=== PATIENT | male | born 1950 | race Caucasian/White ===

== ENCOUNTER 2018-02-01 08:44 | Emergency (ER) | payer MEDICARE, OTHER ==
[~2018-02-01] VITALS: Ht 180.3 cm; Wt 144.7 kg
[~2018-02-01 08:44] MED LIST: ALLO300 PO; ALLOPURINOL 300 MG PO; AMIO200 PO; AMIODARONE 200 MG PO; AMLO10 PO; AMOCLA875 PO; ASPI81CH PO; ASPIRIN 81 MG PO; ATECHL; ATEN100 PO; ATEN50 PO; Amaryl2 MG PO; Atenolol-Chlor1 EACH PO; Atenolol50 MG PO; CHLO25B PO; CLOP75 PO; CLOPIDOGREL 75 MG PO; CODACE30 PO; Coumadin1 MG PO; Coumadin5 MG PO; Cymbalta60 MG PO; DILTIAZEM 360 MG; DOXA4 PO; DULO30 PO; DULO60 PO; ESOM20 PO; FURO40 PO; Fortamet500 MG PO; GLIM2 PO; GLYC2 PO; HYDR1TAB94 PO; INSDET100 SC; INSLI100I; INSLI100I SC; Isosorbide Mono30 MG PO; Januvia50 MG; LEVEMIR FL100 UNIT/1 SC; LEVO750 PO; LOSA50 PO; METF500 PO; METF500C PO; Metformin HCl500 MG PO; Micardis80 MG; NITR.4SL; NITR.4SL MM; OXYACE5T PO; PANT20 PO; PANT40 PO; POTCHL10ER PO; PROM25 PO; RANO500T PO; SIMV10 PO; SITA100T2 PO; Simvastatin20 MG PO; TAMS.4ER PO; TAZTIA XT PO; TAZTIA XT360 MG PO; TELM80 PO; TIAZAC PO; TIZANIDINE HCL2 MG PO; TIZANIDINE HCL4 MG PO; WARF1 PO; WARF10 PO; WARF4 PO; WARF7.5 PO; [UNRECOGNIZED DRUG - CODE] PO; [UNRECOGNIZED DRUG - REMARK]
[2018-02-01 09:44] LABS: Source, Urine Clean Catch
[2018-02-01 09:51] LABS: Bilirubin, Urine Neg (Neg); Blood, Urine 5+ (Neg); Glucose Qualitative, Urine Neg (Neg); Ketones, Urine Neg (Neg); Leukocyte Esterase, Urine Neg (Neg); Nitrite, Urine Neg (Neg); Protein, Urine 4+ (Neg); Specific Gravity, Urine 1.015 (1.003-1.022); Urobilinogen, Urine NORM (Normal); pH, Urine 6.5 (5.0-8.0)
[2018-02-01 09:59] LABS: Color, Urine Red (P-Yellow)
[2018-02-01 10:00] LABS: Appearance, Urine Bloody (Clear)
[2018-02-01 10:04] LABS: Bacteria Mod /hpf; Red Blood Cells, Urine TNTC /hpf (0-2); Squamous Epithelial Cells Not Seen /hpf (Few)
[2018-02-01 11:00] LABS: International Normalized Ratio 1.88; Prothrombin Time Results 19.9 Sec (9.7-11.5)
[2018-02-01] MEDS ORDERED: Bactrim Ds Tab1 EACH PO (11:14)
== END 2018-02-01 11:24 | disposition home or self-care (01) ==
LOC: ER 08:44
PROVIDERS: Internal Medicine
DX: R31.9 Hematuria, unspecified (principal); Z88.0 Allergy status to penicillin; Z79.899 Other long term (current) drug therapy; Z79.4 Long term (current) use of insulin; Z79.84 Long term (current) use of oral hypoglycemic drugs; Z79.01 Long term (current) use of anticoagulants; Z79.82 Long term (current) use of aspirin; I48.91 Unspecified atrial fibrillation; E11.9 Type 2 diabetes mellitus without complications; I10 Essential (primary) hypertension; Z87.891 Personal history of nicotine dependence
CPT/HCPCS: 81001; 85610; 87077; 87086; 87186; 99283

== ENCOUNTER 2018-06-11 11:04 | Day surgery (SDC) | payer MEDICARE, OTHER ==
[~2018-06-11] VITALS: Ht 177.8 cm; Wt 142.7 kg
[~2018-06-11 11:04] MED LIST changes: +Bactrim Ds Tab1 EACH PO
== END 2018-06-11 12:45 | disposition home or self-care (01) ==
LOC: ORSCSDS 11:04
PROVIDERS: Student in an Organized Health Care Education/Training Program
PROC: 0DB68ZX Excision of Stomach, Via Natural or Artificial Opening Endoscopic, Diagnostic (ICD-10-PCS; principal; 2018-06-11 12:30)
DX: Z01.818 Encounter for other preprocedural examination (principal); K29.70 Gastritis, unspecified, without bleeding; E66.01 Morbid (severe) obesity due to excess calories; Z68.41 Body mass index [BMI] 40.0-44.9, adult; E11.9 Type 2 diabetes mellitus without complications; G47.33 Obstructive sleep apnea (adult) (pediatric); I25.10 Atherosclerotic heart disease of native coronary artery without angina pectoris; I48.91 Unspecified atrial fibrillation; I10 Essential (primary) hypertension; M79.7 Fibromyalgia; Z79.01 Long term (current) use of anticoagulants; Z79.82 Long term (current) use of aspirin; Z79.4 Long term (current) use of insulin; Z79.899 Other long term (current) drug therapy; Z87.891 Personal history of nicotine dependence
CPT/HCPCS: 82947; 88305; 88342; 93005; 93010

== ENCOUNTER 2019-01-25 07:35 | Day surgery (SDC) | payer MEDICARE, OTHER ==
[~2019-01-25] VITALS: Ht 177.8 cm; Wt 144.2 kg
[~2019-01-25 07:35] MED LIST changes: +RELION NOV100 UNIT/1 SC; +WARF2 PO
--- NOTE | 2019-01-25 13:09 | NUR ---
ASSUMED CARE AT 1220 PATIENT IS PCU STATUS FROM OUTPATIENT ANGIO. RECEIVED [address]AND IN PL[address] RIGHT RADIAL INFLATED WITH 10CC AIR. PATIENT A&O. AT BEDSIDE.
--- NOTE | 2019-01-25 20:00 | NUR ---
ASSUMED CARE- ASSUMED CARE OF PATIENT AT APPROXIMATELY 1930. PT IS AOX4. VSS. R RADIAL SITE RECOVERED AND TR BAND HAS BEEN REMOVED. CLEAR TEGADERM DRESSING IN PLACE WITH NO NOTED DRAINAGE, BRUISING, OR HEMATOMA. PT DENIES PAIN TO SITE OR R ARM. PT REPORTING MILD CHEST AND BACK "ACHING" THAT HAS "IMPROVED FROM BEFORE" THE PROCEDURE AND STENT PLACEMENT. WILL CONTINUE TO MONITOR, BED IN LOW POSITION, CALL LIGHT IN REACH.
--- NOTE | 2019-01-25 20:16 | NUR ---
REPORT GIVEN TO EVE CORTEZ
[2019-01-26 03:42] LABS: BASOPHILS ABSOLUTE AUTO 0.06 K/mm3 (0.00-0.23); BASOPHILS PERCENT AUTO 1 % (0-2); EOSINOPHILS ABSOLUTE AUTO 0.54 K/mm3 (0.00-0.68); EOSINOPHILS PERCENT AUTO 7 % (0-6); Hematocrit 40.7 % (37.0-53.0); Hemoglobin 13.6 g/dL (13.5-17.5); IMMATURE GRAN ABSOLUTE AUTO 0.03 K/mm3 (0.00-0.10); IMMATURE GRAN PERCENT AUTO 0 % (0-1); LYMPHOCYTES ABSOLUTE AUTO 2.05 K/mm3 (0.84-5.20); LYMPHOCYTES PERCENT AUTO 26 % (21-46); MONOCYTES ABSOLUTE AUTO 0.63 K/mm3 (0.16-1.47); MONOCYTES PERCENT AUTO 8 % (4-13); Mean Corpuscular HGB 31.6 pg (26.0-34.0); Mean Corpuscular HGB Conc 33.4 g/dL (31.5-36.5); Mean Corpuscular Volume 94 fL (80-100); Mean Platelet Volume 10.1 fL (9.1-12.4); NEUTROPHILS ABSOLUTE AUTO 4.67 K/mm3 (1.96-9.15); NEUTROPHILS PERCENT AUTO 58 % (41-73); Platelet Count 230 K/mm3 (150-400); RDW Coefficient Variation 14.1 % (11.7-14.2); RDW Standard Deviation 48.4 fL (35.1-46.3); Red Blood Cell Count 4.31 M/mm3 (4.30-5.90); White Blood Cell Count 7.98 K/mm3 (4.00-11.30)
[2019-01-26 03:55] LABS: International Normalized Ratio 1.09; Prothrombin Time Results 11.5 Sec (9.7-11.5)
[2019-01-26 04:01] LABS: Anion Gap 4 mmol/L (6-16); Blood Urea Nitrogen 15 mg/dL (8-24); Bun/Creatinine Ratio 15.9 (12.0-20.0); CO2, Blood 29 mmol/L (21-32); Chloride, Blood 104 mmol/L (98-108); Creatinine, Blood 0.94 mg/dL (0.60-1.20); Glomerular Filtration Rate >60 (60-); Glucose, Blood 111 mg/dL (70-99); Potassium, Blood 3.8 mmol/L (3.5-5.5); Sodium, Blood 137 mmol/L (136-145)
--- NOTE | 2019-01-26 06:10 | NUR ---
SHIFT SUMMARY- PT HAS REMAINED AOX4 THROUGHOUT SHIFT. VSS. PLEASANT AND COOPERATIVE WITH CARE. PT HAS REPORTED NO INCREASE IN CHEST/BACK DISCOMFORT OR "ACHING", REPORTS THAT IT IS STILL PRESENT, BUT MILD. CARDIAC RHYTHM HAS REMAINED PACED THROUGHOUT THE NIGHT AND PATIENT HAS SLEPT WELL WITH HOME CPAP IN PLACE. R RADIAL SITE REMAINS WNL AND ARM BOARD REMAINS IN PLACE. PT PROVIDED WITH EDUCATION ON POST PROCEDURE WRIST RESTRICTIONS. NO OTHER CHANGES FROM INITIAL ASSESSMENT. WILL CONTINUE TO MONITOR AND REPORT TO ONCOMING SHIFT RN. BED IN LOW POSITION, CALL LIGHT IN REACH.
--- NOTE | 2019-01-26 07:37 | NUR ---
CARE ASSUMED CARE AND REPORT ASSUMED FROM DIEGO PRADO. PT SITTING UP IN BED WATCHING TV; INDEPENDENT IN ROOM. DENIES CHEST PAIN AND DENIES ANY PAIN THIS AM. A/O X3, CALM AND COOPERATIVE. VSS. PACED RHYTHM, HR 55-60. BP STABLE. AFEBRILE. R ARM SECURED IN ARMBOARD. PUNCTURE SITE IN RIGHT WRIST IS CLEAN AND DRY WITH DRESSING INTACT AND RADIAL PULSE PALPABLE. WILL CONTINUE TO MONITOR.
--- NOTE | 2019-01-26 08:40 | NUR ---
AMBULATION PT AMBULATED AROUND UNIT WITH STANDBY ASSIST. ABLE TO CARRY ON CONVERSATION ENTIRE TIME. DENIES CHEST PAIN AND SOB. VSS. NOW SITTING UP IN CHAIR.
[2019-01-26] MEDS ORDERED: CLOP75 PO (14:09)
== END 2019-01-26 14:34 | disposition home or self-care (01) ==
LOC: ECHO 07:35 → MHTC 07:35 → ECHO 08:00 → EDSTATUS 08:00 → ICUW 11:43 → ECHO 12:52 → MHTC 01-26 14:34 → ICUW 01-26 14:34
PROVIDERS: Internal Medicine Cardiovascular Disease
DX: I25.119 Atherosclerotic heart disease of native coronary artery with unspecified angina pectoris (principal); I25.5 Ischemic cardiomyopathy; I48.0 Paroxysmal atrial fibrillation; I25.2 Old myocardial infarction; I49.5 Sick sinus syndrome; I35.0 Nonrheumatic aortic (valve) stenosis; M79.7 Fibromyalgia; G47.33 Obstructive sleep apnea (adult) (pediatric); E11.9 Type 2 diabetes mellitus without complications; E03.9 Hypothyroidism, unspecified; E66.9 Obesity, unspecified; I10 Essential (primary) hypertension; M10.9 Gout, unspecified; Z79.84 Long term (current) use of oral hypoglycemic drugs; Z88.0 Allergy status to penicillin; Z87.891 Personal history of nicotine dependence; Z95.0 Presence of cardiac pacemaker; Z95.5 Presence of coronary angioplasty implant and graft; Z68.42 Body mass index [BMI] 45.0-49.9, adult
CPT/HCPCS: 36415; 37252; 37253; 80048; 83735; 85025; 85347; 85610; 92978; 92979; 93306; 93454; 99152; 99153; C1725; C1753; C1769; C1874; C1887; C1894; C9600; G0378; J1644; J2250; J3010; J7030; Q9967

== ENCOUNTER 2020-05-16 05:55 | Day surgery (SDC) | payer MEDICARE, OTHER ==
[~2020-05-16] VITALS: Ht 177.8 cm; Wt 144.0 kg
[~2020-05-16 05:55] MED LIST changes: +ATOR40TA PO; +NITR.4SL SL
[2020-05-16] MEDS ORDERED: WARF10 PO (06:21)
--- NOTE | 2020-05-16 08:10 | NUR ---
PT TO RECOVERY ROOM POST PROCEDURE. PT AWAKE AND ORIENTED, COOPERATIVE, DENIES CHEST PAINPOST PROCEDURE. MONITOR PACED 50, B/P 129/83, AFEBRILE, SPO2 95% RA. R RADIAL SITE NO SWELLING/HEMATOMA, TR BAND IN PLACE. PT TAKING CRACKERS AND CHEESE WITHOUT ISSUE.
--- NOTE | 2020-05-16 09:35 | NUR ---
PT TOOK BREAKFAST WITHOUT PROBLEM.
--- NOTE | 2020-05-16 09:56 | NUR ---
2 CC AIR REMOVED FROM TR BAND. NO BLEEDING AT SITE.
--- NOTE | 2020-05-16 11:00 | NUR ---
PT AMB IN RECOVERY ROOM AND [place] WITHOUT ISSUE, SITE UNCHANGED. PT DRESSING SELF INDEPENDENTLY.
--- NOTE | 2020-05-16 11:15 | NUR ---
PT DRESSED SELF WITHOUT ISSUE, SITE UNCHANGED. TR BAND REMOVED, WRIST IMMOBILIZER AND CLOTH DOT PLACED; IV REMOVED-CANNULA INTACT.
--- NOTE | 2020-05-16 11:24 | NUR ---
PT RECIEVED DISCHARGE INSTRUCTIONS, MED LIST AND AFTER CARE INSTRUCTIONS; VERBALIZED GOOD UNDERSTANDING. PT LEFT FACILITY VIA W/C, CONDITION STABLE.
== END 2020-05-16 11:24 | disposition home or self-care (01) ==
LOC: MHTC 05:55
PROC: B201YZZ Plain Radiography of Multiple Coronary Arteries using Other Contrast (ICD-10-PCS; principal; 2020-05-16)
PROC: 4A023N7 Measurement of Cardiac Sampling and Pressure, Left Heart, Percutaneous Approach (ICD-10-PCS; principal; 2020-05-16)
DX: I35.0 Nonrheumatic aortic (valve) stenosis (principal); I25.10 Atherosclerotic heart disease of native coronary artery without angina pectoris; Z95.5 Presence of coronary angioplasty implant and graft; Z88.0 Allergy status to penicillin
CPT/HCPCS: 76937; 82947; 93454; 99152; 99153; C1769; C1894; J1644; J2250; J3010; J7030; J7040; Q9967

== ENCOUNTER → 2020-12-25 | Outpatient (CLI) | payer MEDICARE, OTHER | LOC: LAB SHORT 08:59 → LAB 08:59 | DX: R23.4 Changes in skin texture (principal); B35.1 Tinea unguium; L60.2 Onychogryphosis | CPT/HCPCS: 88304; 88312 ==

== ENCOUNTER 2021-06-01 06:54 | Day surgery (SDC) | payer MEDICARE, OTHER ==
[2021-06-01] MEDS ORDERED: POTA10T PO (07:22)
[2021-06-01] MEDS ORDERED: RANO500T PO (07:23)
[2021-06-01] MEDS ORDERED: TRAZ50 PO (07:25)
--- NOTE | 2021-06-01 07:28 | NUR ---
DR. DIAZ TO REVIEW PT'S CHART AND SPEAK WITH PT. DR. DIAZ HAS CANCELED THE HEART CATH FOR TODAY.
== END 2021-06-01 23:41 | disposition home or self-care (01) ==
LOC: MHTC 06:54
DX: I25.118 Atherosclerotic heart disease of native coronary artery with other forms of angina pectoris (principal); Z53.9 Procedure and treatment not carried out, unspecified reason
CPT/HCPCS: J1644; J7030; J7050

== ENCOUNTER → 2023-02-24 | Outpatient (CLI) | payer MEDICARE, OTHER ==
[~2023-02-24] MED LIST changes: +POTA10T PO; +TRAZ50 PO
[2023-02-24 09:41] LABS: Bun/Creatinine Ratio 13.5 (12.0-20.0); Calcium, Blood 9.4 mg/dL (8.5-10.1); Creatinine, Blood 1.11 mg/dL (0.60-1.20); Potassium, Blood 4.4 mmol/L (3.5-5.5)
[2023-02-24 11:15] LABS: International Normalized Ratio 2.18; Prothrombin Time Results 21.9 Sec (9.7-11.5)
== END | disposition home or self-care (01) ==
LOC: LAB 09:31 → LAB SHORT 09:31
PROVIDERS: Family Medicine
DX: I48.91 Unspecified atrial fibrillation (principal); N18.30 Chronic kidney disease, stage 3 unspecified
CPT/HCPCS: 80048; 85610

== ENCOUNTER 2023-10-14 04:00 | Emergency (ER) | payer MEDICARE, OTHER ==
[~2023-10-14] VITALS: Ht 177.8 cm; Wt 138.8 kg
[2023-10-14] MEDS ORDERED: HYDROCODONE-AC1 EA19 (04:22)
[2023-10-14 09:09] VITALS: BP 158/85
== END 2023-10-14 09:10 | disposition home or self-care (01) ==
LOC: ER 04:00
DX: M77.9 Enthesopathy, unspecified (principal); Z98.890 Other specified postprocedural states; I48.91 Unspecified atrial fibrillation; I25.10 Atherosclerotic heart disease of native coronary artery without angina pectoris; E11.9 Type 2 diabetes mellitus without complications; I10 Essential (primary) hypertension; G47.33 Obstructive sleep apnea (adult) (pediatric); Z79.02 Long term (current) use of antithrombotics/antiplatelets; Z79.01 Long term (current) use of anticoagulants; Z79.4 Long term (current) use of insulin; Z79.84 Long term (current) use of oral hypoglycemic drugs; Z79.899 Other long term (current) drug therapy; Z88.0 Allergy status to penicillin
CPT/HCPCS: 29125; 73110; 73201; 99284-25; J1885; L3917; Q9967

== ENCOUNTER 2023-11-01 10:40 | Emergency (ER) | payer MEDICARE, OTHER ==
[~2023-11-01] VITALS: Ht 188 cm; Wt 136.1 kg
[~2023-11-01 10:40] MED LIST changes: +HYDROCODONE-AC1 EA19
[2023-11-01 11:47] LABS: Influenza A, PCR NEGATIVE (NEGATIVE); Influenza B, PCR NEGATIVE (NEGATIVE); Resp Syncytial Virus, PCR NEGATIVE (NEGATIVE); SARS-Cov-2 (COVID-19) PCR, MMC NEGATIVE (NEGATIVE)
[2023-11-01] MEDS ORDERED: HYDR1TAB94 PO (14:37)
[2023-11-01 14:54] VITALS: BP 145/97
== END 2023-11-01 14:55 | disposition home or self-care (01) ==
LOC: ER 10:40
PROVIDERS: Student in an Organized Health Care Education/Training Program
DX: M19.90 Unspecified osteoarthritis, unspecified site (principal); Z11.52 Encounter for screening for COVID-19; Z87.891 Personal history of nicotine dependence; I48.91 Unspecified atrial fibrillation; I25.810 Atherosclerosis of coronary artery bypass graft(s) without angina pectoris; Z95.0 Presence of cardiac pacemaker; E11.9 Type 2 diabetes mellitus without complications; I10 Essential (primary) hypertension; G47.33 Obstructive sleep apnea (adult) (pediatric); M10.9 Gout, unspecified; Z79.01 Long term (current) use of anticoagulants; Z79.4 Long term (current) use of insulin; Z79.84 Long term (current) use of oral hypoglycemic drugs; Z79.02 Long term (current) use of antithrombotics/antiplatelets; Z79.899 Other long term (current) drug therapy; Z88.0 Allergy status to penicillin
CPT/HCPCS: 0241U; 96372; 99283-25; J1885

== ENCOUNTER 2023-11-05 00:27 | Emergency (ER) | payer MEDICARE, OTHER ==
[~2023-11-05] VITALS: Ht 172.7 cm; Wt 124.7 kg
[2023-11-05 01:03] VITALS: BP 162/97
[2023-11-05] MEDS ORDERED: DELTASONE20 MG PO (01:15)
== END 2023-11-05 01:51 | disposition home or self-care (01) ==
LOC: ER 00:27
DX: M19.90 Unspecified osteoarthritis, unspecified site (principal); I48.91 Unspecified atrial fibrillation; I25.10 Atherosclerotic heart disease of native coronary artery without angina pectoris; E11.9 Type 2 diabetes mellitus without complications; I10 Essential (primary) hypertension; Z79.899 Other long term (current) drug therapy; Z79.4 Long term (current) use of insulin; Z79.84 Long term (current) use of oral hypoglycemic drugs; Z79.01 Long term (current) use of anticoagulants; Z95.0 Presence of cardiac pacemaker; Z87.891 Personal history of nicotine dependence
CPT/HCPCS: 96372; 99282-25; J1885; J7512

== ENCOUNTER 2024-02-10 06:04 | Emergency (ER) | payer MEDICARE, OTHER ==
[~2024-02-10] VITALS: Ht 177.8 cm; Wt 143.8 kg
[~2024-02-10 06:04] MED LIST changes: +DELTASONE20 MG PO; +GABA100
[2024-02-10] MEDS ORDERED: TRAM50 PO (06:20)
[2024-02-10] MEDS ORDERED: Cyclobenzaprine5 MG PO (06:21)
[2024-02-10] MEDS ORDERED: [UNRECOGNIZED DRUG - OTHER] MC (06:21)
[2024-02-10] MEDS ORDERED: Ketorolac Tromethamine 30mg Vial IM ONE (06:35)
[2024-02-10 07:26] VITALS: BP 134/78
== END 2024-02-10 07:26 | disposition home or self-care (01) ==
LOC: ER 06:04
DX: R52 Pain, unspecified (principal); I25.10 Atherosclerotic heart disease of native coronary artery without angina pectoris; I48.91 Unspecified atrial fibrillation; E11.9 Type 2 diabetes mellitus without complications; I10 Essential (primary) hypertension; Z88.0 Allergy status to penicillin; Z79.899 Other long term (current) drug therapy; Z79.84 Long term (current) use of oral hypoglycemic drugs; Z79.01 Long term (current) use of anticoagulants; Z95.0 Presence of cardiac pacemaker
CPT/HCPCS: 96372; 99283-25; J1885

== ENCOUNTER 2024-02-15 11:10 | Emergency (ER) | payer MEDICARE, OTHER ==
[~2024-02-15] VITALS: Ht 177.8 cm; Wt 143.8 kg
[~2024-02-15 11:10] MED LIST changes: +Cyclobenzaprine5 MG PO; +TRAM50 PO; +[UNRECOGNIZED DRUG - OTHER] MC
[2024-02-15 11:14] VITALS: BP 154/92
== END 2024-02-15 13:17 | disposition home or self-care (01) ==
LOC: ER 11:10
DX: R52 Pain, unspecified (principal); I25.2 Old myocardial infarction; Z79.01 Long term (current) use of anticoagulants; Z79.899 Other long term (current) drug therapy; Z88.0 Allergy status to penicillin; Z95.0 Presence of cardiac pacemaker; Z95.5 Presence of coronary angioplasty implant and graft; Z87.891 Personal history of nicotine dependence; I25.10 Atherosclerotic heart disease of native coronary artery without angina pectoris; E11.9 Type 2 diabetes mellitus without complications; I10 Essential (primary) hypertension
CPT/HCPCS: 99283

== ENCOUNTER 2024-10-11 17:56 | Emergency (ER) | payer MEDICARE, OTHER ==
[~2024-10-11] VITALS: Ht 177.8 cm; Wt 129.7 kg
[2024-10-11 18:27] LABS: BASOPHILS ABSOLUTE AUTO 0.06 K/mm3 (0.00-0.23); BASOPHILS PERCENT AUTO 1 % (0-2); EOSINOPHILS ABSOLUTE AUTO 0.28 K/mm3 (0.00-0.68); EOSINOPHILS PERCENT AUTO 3 % (0-6); Hematocrit 35.6 % (37.0-53.0); Hemoglobin 12.1 g/dL (13.5-17.5); IMMATURE GRAN ABSOLUTE AUTO 0.06 K/mm3 (0.00-0.10); IMMATURE GRAN PERCENT AUTO 1 % (0-1); LYMPHOCYTES ABSOLUTE AUTO 2.46 K/mm3 (0.84-5.20); LYMPHOCYTES PERCENT AUTO 27 % (21-46); MONOCYTES ABSOLUTE AUTO 0.69 K/mm3 (0.16-1.47); MONOCYTES PERCENT AUTO 8 % (4-13); Mean Corpuscular HGB 31.8 pg (26.0-34.0); Mean Corpuscular Volume 94 fL (80-100); Mean Platelet Volume 10.1 fL (9.1-12.4); NEUTROPHILS ABSOLUTE AUTO 5.47 K/mm3 (1.96-9.15); NEUTROPHILS PERCENT AUTO 61 % (41-73); Platelet Count 216 K/mm3 (150-400); RDW Coefficient Variation 13.3 % (11.7-14.2); RDW Standard Deviation 45.5 fL (35.1-46.3); White Blood Cell Count 9.02 K/mm3 (4.00-11.30)
[2024-10-11 18:41] LABS: International Normalized Ratio 1.43; Prothrombin Time Results 14.9 Sec (9.7-11.5)
[2024-10-11 18:50] LABS: Albumin, Blood 3.2 g/dL (3.4-5.0); Albumin/Globulin Ratio 0.8 (0.8-1.8); Bilirubin, Total 0.7 mg/dL (0.1-1.0); Bun/Creatinine Ratio 14.3 (12.0-20.0); Calcium, Blood 9.5 mg/dL (8.5-10.1); Creatinine, Blood 0.98 mg/dL (0.60-1.20); Potassium, Blood 4.5 mmol/L (3.5-5.5); Total Protein, Blood 7.2 g/dL (6.4-8.2)
[2024-10-11 20:29] VITALS: BP 158/70
[2024-10-11] MEDS ORDERED: RX Prepack 6 Tabs Oxycodone 5mg UD ONE (20:50)
== END 2024-10-11 21:25 | disposition home or self-care (01) ==
LOC: ER 17:56
PROVIDERS: Student in an Organized Health Care Education/Training Program
DX: M79.89 Other specified soft tissue disorders (principal); I10 Essential (primary) hypertension; E11.9 Type 2 diabetes mellitus without complications; I48.91 Unspecified atrial fibrillation; Z79.02 Long term (current) use of antithrombotics/antiplatelets; Z79.84 Long term (current) use of oral hypoglycemic drugs; Z79.01 Long term (current) use of anticoagulants; Z79.899 Other long term (current) drug therapy; Z79.52 Long term (current) use of systemic steroids; Z88.0 Allergy status to penicillin
CPT/HCPCS: 80053; 85025; 85610; 93971; 99284-25; A9270

== ENCOUNTER 2024-12-16 09:54 | Day surgery (SDC) | payer MEDICARE, OTHER ==
[~2024-12-16] VITALS: Ht 177.8 cm; Wt 125.9 kg
[2024-12-16] VITALS (11 sets, daily range): BP systolic 142–177; BP diastolic 74–98
[~2024-12-16 09:54] MED LIST changes: +Acetaminophen 500 MG Tab PO SCH; +CeFAZolin Sodium 3,000 MG in NS 100 ML IV SCH; +Chlorhexidine Mouth Care 15 ML UDC MT SCH; -GABA100; +GABA100 PO; +Lactated Ringer's 1,000 ML IV SCH; -Metformin HCl500 MG PO; +OxyCODONE HCL 10 MG TABCR PO SCH; +Ropivacaine 0.5% HCl/Pf 123.125 MG,EPINEPHrine HCL 0.25 MG,Ketorolac Tromethamine 15 MG... INFIL SCH; +Tranexamic Acid 100 ML IV SCH
[2024-12-16] MEDS ORDERED: CeFAZolin Sodium 3,000 MG VIAL ONE (10:05)
[2024-12-16] MEDS ORDERED: Midazolam HCl 1MG / ML 2ML Vial ONE (10:55)
--- NOTE | 2024-12-16 10:55 | NUR ---
LEIGH FROM HEART CENTER DOWN TO INTERROGATE PT PACEMAKER AT REQUEST OF DR. ARELLANO. PT PACE MAKE IS VERY CLOSE TO LOCATION OF SHOULDER INCISION. PLAN TO PROCEED WITH PROCEDURE AT THIS TIME.
[2024-12-16] MEDS ORDERED: Bupivacaine HCl 0.25% 30 ML Injection ONE (10:56)
--- NOTE | 2024-12-16 10:58 | NUR ---
History, Chart, Medications and Allergies reviewed before start of procedure. Patient confirms NPO status and agrees with scheduled surgery. Patient reports completing Chlorhexadine shower X2 prior to admission to hospital. Pre-Op teaching done. Pt verbalizes understanding. Lungs clear T/O to Auscultation.
[2024-12-16] MEDS ORDERED: propofoL 20 ML IV ONE (11:17)
[2024-12-16] MEDS ORDERED: Rocuronium Bromide 10 MG/ML 5ML Injection IV ONE (11:18)
--- NOTE | 2024-12-16 11:18 | NUR ---
1110 TIMOUT FOR INTERSCALING BLOCK TO LEFT ARM. PT ON BIOX AND O2 2L, MEDS GIVEN BY DR. ARELLANO. PT TOLERATED WELL. 1116- BLOCK COMPLETE. PT GLASSES, HEARING AIDS AND UPPER DENTURES PLACED IN PACU.
[2024-12-16] MEDS ORDERED: FentaNYL Citrate 50 MCG/ML 2 ML Injection ONE (11:19)
[2024-12-16] MEDS ORDERED: Ondansetron HCl 2 MG / ML 2ML Vial ONE (11:41)
[2024-12-16] MEDS ORDERED: Dexamethasone Sod Phos 10 MG/ML 1ML VIAL ONE (11:41)
[2024-12-16] MEDS ORDERED: Phenylephrine HCl 100 MCG/ML-NS 10MLSYR (1MG/10ML) ONE ×3 (11:43→12:56)
[2024-12-16] MEDS ORDERED: Furosemide 40 MG Tab PO PRN (11:45)
[2024-12-16] MEDS ORDERED: HYDROcodone 5-APAP 325 TAB PO PRN (11:50)
[2024-12-16] MEDS ORDERED: OxyCODONE HCL 5 MG TAB PO PRN ×2 (11:55→12:00)
[2024-12-16] MEDS ORDERED: Metoclopramide HCl 5MG / ML 2ML Vial IV PRN (11:55)
[2024-12-16] MEDS ORDERED: Ondansetron HCl 2 MG / ML 2ML Vial IV PRN ×2 (11:55→13:25)
[2024-12-16] MEDS ORDERED: DiphenhydrAMINE HCL 25 MG Cap PO PRN (12:00)
[2024-12-16] MEDS ORDERED: Bisacodyl 10 MG Supp PR PRN (12:00)
[2024-12-16] MEDS ORDERED: Prochlorperazine Edisylate 10 mg Vial IV PRN (12:00)
[2024-12-16] MEDS ORDERED: FLU VACC TS2024-25(6MOS UP)/PF 45 MCG/0.5 ML SYRINGE IM SCH (12:25)
[2024-12-16] MEDS ORDERED: HYDROmorphone HCl 0.5 MG/0.5 ML SYR IV PRN ×2 (12:25→13:25)
[2024-12-16] MEDS ORDERED: Promethazine HCl 25 MG Tab PO PRN (12:25)
[2024-12-16] MEDS ORDERED: Lactated Ringer's 1,000 ML IV SCH (12:25)
[2024-12-16] MEDS ORDERED: Tranexamic Acid 100 ML IV SCH (12:30)
[2024-12-16] MEDS ORDERED: Magnesium Hydroxide Conc 10 ML UDC PO PRN (12:30)
[2024-12-16] MEDS ORDERED: Albuterol 2.5 MG/3 ML VIAL INH PRN (13:25)
[2024-12-16] MEDS ORDERED: FentaNYL Citrate 50 MCG/ML 2 ML Injection IV PRN ×2 (13:25→13:30)
[2024-12-16] MEDS ORDERED: Acetaminophen 500 MG Tab PO SCH (16:00)
[2024-12-16] MEDS ORDERED: MetFORMIN HCl 500 mg PO SCH (17:00)
[2024-12-16] MEDS ORDERED: CeFAZolin Sodium 3,000 MG in NS 100 ML IV SCH (18:00)
[2024-12-16] MEDS ORDERED: Ketorolac Tromethamine 15mg Vial IV SCH (18:00)
--- NOTE | 2024-12-16 18:25 | NUR ---
DISCHARGE PT HAS WORKED w/ THERAPY. PAIN WELL CONTROLLED. EATING, DRINKING, & VOIDING WELL. BRITANY & DESHAWN COATES SENT w/ PT. ESCORTED OUT VIA W/C.
[2024-12-16] MEDS ORDERED: Pantoprazole Sodium 40 MG Tab PO SCH (21:00)
[2024-12-16] MEDS ORDERED: TraZODone HCl 50 MG Tab PO SCH (21:00)
[2024-12-16] MEDS ORDERED: Glimepiride 4 MG Tab PO SCH (21:00)
[2024-12-16] MEDS ORDERED: Atorvastatin 40 MG Tab PO SCH (21:00)
[2024-12-16] MEDS ORDERED: Docusate Sodium 100 MG Cap PO SCH (21:00)
[2024-12-16] MEDS ORDERED: TiZANidine HCl 4 MG Tab PO SCH (21:00)
[2024-12-16] MEDS ORDERED: Gabapentin 300 MG Cap PO SCH (21:00)
[2024-12-17] MEDS ORDERED: Isosorbide Mononitrate 60 MG TABCR PO SCH (06:00)
[2024-12-17] MEDS ORDERED: Potassium Chloride 10 Meq Tablet SA PO SCH (09:00)
[2024-12-17] MEDS ORDERED: dilTIAZem HCL 240 MG CAP.CD PO SCH (09:00)
[2024-12-17] MEDS ORDERED: DULoxetine HCL 60 MG Capsule DR PO SCH (09:00)
[2024-12-17] MEDS ORDERED: Tamsulosin HCl 0.4 MG Cap PO SCH (09:00)
[2024-12-17] MEDS ORDERED: Losartan Potassium 50 MG Tab PO SCH (09:00)
[2024-12-17] MEDS ORDERED: Allopurinol 300 MG Tab PO SCH (09:00)
== END 2024-12-16 18:22 | disposition home or self-care (01) ==
LOC: ORSCMMR 09:54 → ORD 11:00 → ORSCMMR 11:00 → SURS 14:09 → ORSCMMR 18:22 → ORSCSDS 12-17 07:30
PROVIDERS: Orthopaedic Surgery
PROC: 0RRK00Z Replacement of Left Shoulder Joint with Reverse Ball and Socket Synthetic Substitute, Open Approach (ICD-10-PCS; principal; 2024-12-16 11:00)
DX: M12.812 Other specific arthropathies, not elsewhere classified, left shoulder (principal); M75.122 Complete rotator cuff tear or rupture of left shoulder, not specified as traumatic; I10 Essential (primary) hypertension; E11.9 Type 2 diabetes mellitus without complications; G47.33 Obstructive sleep apnea (adult) (pediatric); I48.91 Unspecified atrial fibrillation; Z79.01 Long term (current) use of anticoagulants; I25.2 Old myocardial infarction; K21.9 Gastro-esophageal reflux disease without esophagitis; Z79.4 Long term (current) use of insulin; Z79.84 Long term (current) use of oral hypoglycemic drugs; Z79.899 Other long term (current) drug therapy; Z95.0 Presence of cardiac pacemaker; Z87.891 Personal history of nicotine dependence
CPT/HCPCS: 73030; 82947; 97116; 97161; A9270; C1713; C1776; J0171; J0690; J0735; J1100; J1885; J2250; J2371; J2405; J2704; J2795; J3010; J7120

== ENCOUNTER 2024-12-24 11:59 | Emergency (ER) | payer MEDICARE, OTHER ==
[~2024-12-24] VITALS: Ht 185.4 cm; Wt 124.3 kg
[~2024-12-24 11:59] MED LIST changes: -Acetaminophen 500 MG Tab PO SCH; -CeFAZolin Sodium 3,000 MG in NS 100 ML IV SCH; -Chlorhexidine Mouth Care 15 ML UDC MT SCH; -Lactated Ringer's 1,000 ML IV SCH; -OxyCODONE HCL 10 MG TABCR PO SCH; -Ropivacaine 0.5% HCl/Pf 123.125 MG,EPINEPHrine HCL 0.25 MG,Ketorolac Tromethamine 15 MG... INFIL SCH; -Tranexamic Acid 100 ML IV SCH
[2024-12-24 12:18] VITALS: BP 167/95
[2024-12-24 13:35] LABS: Source, Urine Clean Catch
[2024-12-24 13:40] LABS: Bilirubin, Urine Neg (Neg); Blood, Urine 1+ (Neg); Glucose Qualitative, Urine Neg (Neg); Ketones, Urine Neg (Neg); Leukocyte Esterase, Urine Neg (Neg); Nitrite, Urine Neg (Neg); Protein, Urine 2+ (Neg); Specific Gravity, Urine 1.015 (1.003-1.022); Urobilinogen, Urine NORM (Normal)
[2024-12-24 13:47] LABS: Appearance, Urine Clear (Clear); Color, Urine Pale Yellow (P-Yellow)
[2024-12-24 13:48] LABS: Bacteria Rare /hpf; Red Blood Cells, Urine 0-2 /hpf (0-2); Squamous Epithelial Cells Not Seen /hpf (Few); White Blood Cells, Urine 0-2 /hpf (0-5)
[2024-12-24 14:49] LABS: BASOPHILS ABSOLUTE AUTO 0.04 K/mm3 (0.00-0.23); BASOPHILS PERCENT AUTO 1 % (0-2); EOSINOPHILS ABSOLUTE AUTO 0.18 K/mm3 (0.00-0.68); EOSINOPHILS PERCENT AUTO 3 % (0-6); Hematocrit 34.5 % (37.0-53.0); Hemoglobin 11.6 g/dL (13.5-17.5); IMMATURE GRAN ABSOLUTE AUTO 0.06 K/mm3 (0.00-0.10); IMMATURE GRAN PERCENT AUTO 1 % (0-1); LYMPHOCYTES ABSOLUTE AUTO 0.96 K/mm3 (0.84-5.20); LYMPHOCYTES PERCENT AUTO 15 % (21-46); MONOCYTES ABSOLUTE AUTO 0.66 K/mm3 (0.16-1.47); MONOCYTES PERCENT AUTO 10 % (4-13); Mean Corpuscular HGB 30.7 pg (26.0-34.0); Mean Corpuscular HGB Conc 33.6 g/dL (31.5-36.5); Mean Corpuscular Volume 91 fL (80-100); Mean Platelet Volume 9.7 fL (9.1-12.4); NEUTROPHILS ABSOLUTE AUTO 4.68 K/mm3 (1.96-9.15); NEUTROPHILS PERCENT AUTO 71 % (41-73); Platelet Count 306 K/mm3 (150-400); RDW Coefficient Variation 13.2 % (11.7-14.2); RDW Standard Deviation 44.6 fL (35.1-46.3); Red Blood Cell Count 3.78 M/mm3 (4.30-5.90); White Blood Cell Count 6.58 K/mm3 (4.00-11.30)
[2024-12-24 15:11] LABS: Albumin, Blood 2.9 g/dL (3.4-5.0); Albumin/Globulin Ratio 0.7 (0.8-1.8); Bilirubin, Total 0.3 mg/dL (0.1-1.0); Bun/Creatinine Ratio 12.5 (12.0-20.0); Calcium, Blood 9.2 mg/dL (8.5-10.1); Creatinine, Blood 0.72 mg/dL (0.60-1.20); Globulin, Blood 4.4 g/dL (2.2-4.0); Potassium, Blood 3.8 mmol/L (3.5-5.5); Total Protein, Blood 7.3 g/dL (6.4-8.2)
== END 2024-12-24 14:22 | disposition left against medical advice (07) ==
LOC: ER 11:59
PROVIDERS: Student in an Organized Health Care Education/Training Program
DX: E16.2 Hypoglycemia, unspecified (principal); Z53.29 Procedure and treatment not carried out because of patient's decision for other reasons
CPT/HCPCS: 80053; 81001; 82947; 85025; 99281

== ENCOUNTER 2025-04-12 11:22 | Inpatient (IN) | payer MEDICARE, OTHER ==
[2025-04-12] VITALS (20 sets, daily range): BP systolic 150–196; BP diastolic 62–99
[~2025-04-12] VITALS: Ht 177.8 cm; Wt 110.2 kg
[~2025-04-12 11:22] MED LIST changes: -Amaryl2 MG PO; +CARV3.125 PO; +GLIM4 PO; +METO50ER PO; +NOVOLIN 70100 UNIT/4 SC; +OXYC5 PO; +PIOG15 PO
[2025-04-12] MEDS ORDERED: CeFAZolin Sodium 2,000 MG in NS 100 ML IV SCH ×2 (12:00→22:00)
[2025-04-12] MEDS ORDERED: OxyCODONE HCL 10 MG TABCR PO SCH (12:00)
[2025-04-12] MEDS ORDERED: Chlorhexidine Mouth Care 15 ML UDC MT SCH (12:00)
[2025-04-12] MEDS ORDERED: Lactated Ringer's 1,000 ML IV SCH ×2 (12:00→13:35)
[2025-04-12] MEDS ORDERED: Acetaminophen 500 MG Tab PO SCH ×2 (12:00→16:00)
[2025-04-12] MEDS ORDERED: Ropivacaine 0.5% HCl/Pf 123.125 MG,EPINEPHrine HCL 0.25 MG,Ketorolac Tromethamine 15 MG... INFIL SCH (12:00)
[2025-04-12] MEDS ORDERED: Tranexamic Acid 100 ML IV SCH ×2 (12:00→13:35)
[2025-04-12] MEDS ORDERED: Promethazine HCl 25 MG Tab PO PRN (13:20)
[2025-04-12] MEDS ORDERED: Bisacodyl 10 MG Supp PR PRN (13:20)
[2025-04-12] MEDS ORDERED: DiphenhydrAMINE HCL 25 MG Cap PO PRN (13:20)
[2025-04-12] MEDS ORDERED: Magnesium Hydroxide Conc 10 ML UDC PO PRN (13:25)
[2025-04-12] MEDS ORDERED: Ondansetron HCl 2 MG / ML 2ML Vial IV PRN ×2 (13:25→14:25)
[2025-04-12] MEDS ORDERED: HYDROmorphone HCl/Pf 1MG SYR IV PRN ×3 (13:25→14:25)
[2025-04-12] MEDS ORDERED: Metoclopramide HCl 5MG / ML 2ML Vial IV PRN (13:25)
[2025-04-12] MEDS ORDERED: OxyCODONE HCL 5 MG TAB PO PRN ×2 (13:30)
[2025-04-12] MEDS ORDERED: Prochlorperazine Edisylate 10 mg Vial IV PRN (13:30)
[2025-04-12] MEDS ORDERED: Lidocaine HCl 2% 20 ML MDV ONE (13:32)
[2025-04-12] MEDS ORDERED: propofoL 20 ML IV ONE (13:32)
[2025-04-12] MEDS ORDERED: FentaNYL Citrate 50 MCG/ML 2 ML Injection ONE ×3 (13:32→16:30)
--- NOTE | 2025-04-12 13:32 | NUR ---
INTO SDS VIA W/C PT RECENTLY HAD RIGHT BERNARD IN FEBRUARY. ABMULATES W/CANE. Pre-Op teaching done. Pt verbalizes understanding. History, Chart, Medications and Allergies reviewed before start of procedure.Patient confirms NPO status and agrees with scheduled surgery. Patient reports completing Chlorhexadine shower X2 prior to admission to hospital. TOP DENTURE, HEARING AIDS, GLASSES, AND CANE TO PACU. WEDDING RING UNABLE TO BE REMOVED.
[2025-04-12] MEDS ORDERED: Rocuronium Bromide 10 MG/ML 5ML Injection IV ONE (13:33)
[2025-04-12] MEDS ORDERED: Phenylephrine HCl 100 MCG/ML-NS 10MLSYR (1MG/10ML) ONE ×2 (14:00→15:08)
[2025-04-12] MEDS ORDERED: Ondansetron HCl 2 MG / ML 2ML Vial ONE (14:16)
[2025-04-12] MEDS ORDERED: Dexamethasone Sod Phos 10 MG/ML 1ML VIAL ONE (14:16)
[2025-04-12] MEDS ORDERED: FentaNYL Citrate 50 MCG/ML 2 ML Injection IV PRN ×2 (14:25)
[2025-04-12] MEDS ORDERED: Sugammadex Sodium 200 MG/2ML SDV (100 MG/ML) ONE (15:38)
[2025-04-12] MEDS ORDERED: Ketorolac Tromethamine 30mg Vial ONE (16:05)
[2025-04-12] MEDS ORDERED: HYDROmorphone HCl/Pf 1MG SYR ONE ×2 (16:20→16:30)
--- NOTE | 2025-04-12 17:23 | NUR ---
PT ARRIVED TO UNIT AT APROX 1711. DRESSING TO L SHOULDER C/D/I, PT REPORTS PAIN /10, APPEARS TO BE RESTING COMFORTABLY. PT A/O X'S 4. LUNGS CLEAR T/O W/DIM BASES. O2 SAT 100% ON 3L UPON ARRIVAL TO UNIT, TITRATED DOWN TO 2, O2 SAT 97%. ORDER FOR TELE PLACED D/T PT EXTENSIVE CARDIAC HX. REPORT GIVEN TO PRIMARY RN.
--- NOTE | 2025-04-12 17:29 | NUR ---
POST-OP PATIENT IS AOX4, SATS 88-93$ ON 2L NC, LUNGS SOUNDS CLEAR. DENIES PAIN N/V AT THIS TIME. VSS. TELE ORDER PLACED. CONT. PULSE OX ON. LEFT SHOUDLER DRESSING IS C/D/I. SLING TO LEFT ARM IN PLACE. CALL LIGHT IN REACH.
[2025-04-12] MEDS ORDERED: Ketorolac Tromethamine 15mg Vial IV SCH (18:00)
[2025-04-12] MEDS ORDERED: Tamsulosin HCl 0.4 MG Cap PO SCH (18:35)
--- NOTE | 2025-04-12 18:38 | NUR ---
SHIFT SUMMARY NO ACUTE EVENTS, PAIN WELL MANAGED. VSS, HOME MEDICATION ORDERS IN FOR TONIGHT. SHOULDER DRESSING IS C/D/I. ON 2L NC, TELE IN PLACE, A-FIB IN THE 80S PER TECH. PATIENT TOLERATING PO INTAKE, CALL LIGHT IN REACH.
[2025-04-12] MEDS ORDERED: Glimepiride 4 MG Tab PO SCH (18:40)
[2025-04-12] MEDS ORDERED: Isosorbide Mononitrate 60 MG TABCR PO SCH (18:40)
[2025-04-12] MEDS ORDERED: dilTIAZem HCL 240 MG CAP.CD PO SCH (18:40)
[2025-04-12] MEDS ORDERED: MetFORMIN HCl 500 mg PO SCH (18:40)
[2025-04-12] MEDS ORDERED: Metoprolol Succinate 50 MG TABCR PO SCH (18:40)
[2025-04-12] MEDS ORDERED: Gabapentin 300 MG Cap PO SCH (21:00)
[2025-04-12] MEDS ORDERED: Pantoprazole Sodium 40 MG Tab PO SCH (21:00)
[2025-04-12] MEDS ORDERED: Insulin Isoph 70 / Reg 30 100 Unit/ML 10ML Vial SC SCH (21:00)
[2025-04-12] MEDS ORDERED: Docusate Sodium 100 MG Cap PO SCH (21:00)
[2025-04-12] MEDS ORDERED: Atorvastatin 40 MG Tab PO SCH (21:00)
[2025-04-13 01:12] VITALS: BP 132/76
[2025-04-13 04:13] VITALS: BP 140/77
[2025-04-13 04:28] LABS: BASOPHILS ABSOLUTE AUTO 0.01 K/mm3 (0.00-0.23); BASOPHILS PERCENT AUTO 0 % (0-2); EOSINOPHILS PERCENT AUTO 0 % (0-6); Hematocrit 30.6 % (37.0-53.0); Hemoglobin 9.9 g/dL (13.5-17.5); IMMATURE GRAN ABSOLUTE AUTO 0.03 K/mm3 (0.00-0.10); IMMATURE GRAN PERCENT AUTO 0 % (0-1); LYMPHOCYTES ABSOLUTE AUTO 0.73 K/mm3 (0.84-5.20); LYMPHOCYTES PERCENT AUTO 11 % (21-46); MONOCYTES ABSOLUTE AUTO 0.37 K/mm3 (0.16-1.47); MONOCYTES PERCENT AUTO 6 % (4-13); Mean Corpuscular HGB 28.2 pg (26.0-34.0); Mean Corpuscular HGB Conc 32.4 g/dL (31.5-36.5); Mean Corpuscular Volume 87 fL (80-100); Mean Platelet Volume 9.9 fL (9.1-12.4); NEUTROPHILS ABSOLUTE AUTO 5.54 K/mm3 (1.96-9.15); NEUTROPHILS PERCENT AUTO 83 % (41-73); Platelet Count 233 K/mm3 (150-400); RDW Coefficient Variation 14.4 % (11.7-14.2); RDW Standard Deviation 45.9 fL (35.1-46.3); Red Blood Cell Count 3.51 M/mm3 (4.30-5.90); White Blood Cell Count 6.68 K/mm3 (4.00-11.30)
[2025-04-13 04:53] LABS: Bun/Creatinine Ratio 13.9 (12.0-20.0); Calcium, Blood 9.2 mg/dL (8.5-10.1); Creatinine, Blood 0.79 mg/dL (0.60-1.20); Potassium, Blood 4.5 mmol/L (3.5-5.5)
--- NOTE | 2025-04-13 04:53 | NUR ---
SHIFT SUMMARY PT S/P LEFT SHOULDER REVISION, PT HAS DONE WELL OVERNIGHT. HE REPORTS NO PAIN, DECLINED PAIN MEDICATIONS. SLING IN PLACE TO LEFT ARM, SURGICAL SITE WNL, DRESSING C/D/I. PT HAS BEEN UP AND AMBULATING AND IS VOIDING. TOLRATING PO INTAKE. POST OP VITALS ARE STABLE. PLAN IS FOR DISCHARGE TODAY. BED IN LOWEST POSITION, CALL LIGHT WITHIN REACH.
[2025-04-13 07:24] VITALS: BP 151/82
[2025-04-13 07:57] VITALS: BP 110/76
[2025-04-13] MEDS ORDERED: Clopidogrel Bisulfate 75 MG Tab PO SCH (09:00)
[2025-04-13] MEDS ORDERED: Allopurinol 300 MG Tab PO SCH (09:00)
[2025-04-13] MEDS ORDERED: Aspirin 81 MG Chew PO SCH (09:00)
[2025-04-13] MEDS ORDERED: DULoxetine HCL 60 MG Capsule DR PO SCH (09:00)
--- NOTE | 2025-04-13 10:33 | NUR ---
Pt. is awake and welcomes my visit. Pt. displays evidence of preparing to be discharged. Facilitated a short life review and considered matters of dee dee and belief. Pt. shared his spiritual journey and welcomed prayer. Praed with the Pt. Pt. verbalized and expectation of being discharged soon as well as gratitude for the spiritual care visit.
--- NOTE | 2025-04-13 11:53 | NUR ---
DISHCARGE PATIENT WORKS WITH THERAPIES, VOIDING, VSS. TOLERATING PO INTAKE. ALL INSTRUCTIONS READ AND SIGNED, ICE MACHINE IS PACKED AND ALL BELONGINGS TAKEN WITH PATIENT OUT TO PRIVATE CAR. IV TAKEN OUT INTACT.
[2025-04-13] MEDS ORDERED: Warfarin Sodium 5 MG Tab PO SCH (18:00)
== END 2025-04-13 11:30 | disposition home or self-care (01) | DRG 483 ==
LOC: SURS 11:22
PROVIDERS: ADMIT Orthopaedic Surgery
PROC: 0RRK0J6 Replacement of Left Shoulder Joint with Synthetic Substitute, Humeral Surface, Open Approach (ICD-10-PCS; 2025-04-12)
PROC: 0LQ20ZZ Repair Left Shoulder Tendon, Open Approach (ICD-10-PCS; 2025-04-12)
PROC: 0RPK0J6 Removal of Synthetic Substitute from Left Shoulder Joint, Humeral Surface, Open Approach (ICD-10-PCS; principal; 2025-04-12 12:30)
DX: T84.038A Mechanical loosening of other internal prosthetic joint, initial encounter (principal); Z68.42 Body mass index [BMI] 45.0-49.9, adult; T84.028A Dislocation of other internal joint prosthesis, initial encounter; Y79.2 Prosthetic and other implants, materials and accessory orthopedic devices associated with adverse incidents; I48.91 Unspecified atrial fibrillation; I10 Essential (primary) hypertension; G89.29 Other chronic pain; I25.10 Atherosclerotic heart disease of native coronary artery without angina pectoris; E66.9 Obesity, unspecified; E11.9 Type 2 diabetes mellitus without complications; I25.2 Old myocardial infarction; Z95.5 Presence of coronary angioplasty implant and graft; M25.551 Pain in right hip; T84.029A Dislocation of unspecified internal joint prosthesis, initial encounter; Z95.0 Presence of cardiac pacemaker; Z88.0 Allergy status to penicillin; Z79.01 Long term (current) use of anticoagulants; Z79.02 Long term (current) use of antithrombotics/antiplatelets; Z79.4 Long term (current) use of insulin; Z79.84 Long term (current) use of oral hypoglycemic drugs; Z85.828 Personal history of other malignant neoplasm of skin; Z96.641 Presence of right artificial hip joint; Z95.2 Presence of prosthetic heart valve; Z87.891 Personal history of nicotine dependence; Z01.812 Encounter for preprocedural laboratory examination
CPT/HCPCS: 36415; 73030; 73502; 80048; 82947; 85025; 85610; 85730; 87070; 87075; 87205; 97116; 97161; 97165; 97530; 97535; A9270; J0171; J0690; J0735; J1100; J1171; J1815; J1885; J2371; J2405; J2704; J2795; J3010; J7120

== ENCOUNTER 2025-09-08 05:40 | Inpatient (IN) | payer MEDICARE, OTHER ==
[2025-08-22 10:16] VITALS: BP 121/69
[2025-09-08] VITALS (13 sets, daily range): BP systolic 117–170; BP diastolic 55–97
[~2025-09-08] VITALS: Ht 177.8 cm; Wt 102.3 kg
[~2025-09-08 05:40] MED LIST changes: +CYCL10 PO; -GABA100 PO; +GABA300 PO; +KLOR-CON M1010 MEQ PO; +TIZA4 PO
[2025-09-08] MEDS ORDERED: Tranexamic Acid 100 ML IV SCH (06:20)
[2025-09-08] MEDS ORDERED: CeFAZolin Sodium 2,000 MG in NS 100 ML IV SCH ×2 (06:20→15:50)
[2025-09-08] MEDS ORDERED: Chlorhexidine Mouth Care 15 ML UDC MT SCH (06:20)
[2025-09-08] MEDS ORDERED: Ropivacaine 0.5% HCl/Pf 123.125 MG,EPINEPHrine HCL 0.25 MG,Ketorolac Tromethamine 15 MG... INFIL SCH (06:20)
[2025-09-08] MEDS ORDERED: Ondansetron HCl 2 MG / ML 2ML Vial ONE (06:52)
[2025-09-08] MEDS ORDERED: FentaNYL Citrate 50 MCG/ML 5 ML Injection ONE (06:52)
[2025-09-08] MEDS ORDERED: Metoclopramide HCl 5MG / ML 2ML Vial ONE (06:52)
[2025-09-08] MEDS ORDERED: Bupivacaine HCl 0.25% 30 ML Injection ONE (06:53)
--- NOTE | 2025-09-08 07:14 | NUR ---
Wheelchaired into Day Surgery. History, Chart, Medications and Allergies reviewed before start of procedure.Pre-Op teaching done. Pt verbalizes understanding. Patient States Post-Procedure ride home has been arranged.
--- NOTE | 2025-09-08 07:40 | NUR ---
TIMEOUT PERFORMED WITH DR DUENAS AT BEDSIDE FOR INTERSCALENE BLOCK TO RIGHT SIDE. PROCEDURE STARTED 729 PROCEDURE END 735; PT TOLERATED WELL.
[2025-09-08] MEDS ORDERED: Metoclopramide HCl 5MG / ML 2ML Vial IV PRN ×3 (08:30→10:10)
[2025-09-08] MEDS ORDERED: Ondansetron HCl 2 MG / ML 2ML Vial IV PRN ×3 (08:30→10:10)
[2025-09-08] MEDS ORDERED: Magnesium Hydroxide Conc 10 ML UDC PO PRN ×2 (08:35→10:15)
[2025-09-08] MEDS ORDERED: FentaNYL Citrate 50 MCG/ML 2 ML Injection IV PRN ×2 (08:40→08:45)
[2025-09-08] MEDS ORDERED: HYDROmorphone HCl/Pf 1MG SYR IV PRN ×3 (08:40→10:20)
[2025-09-08] MEDS ORDERED: Prochlorperazine Edisylate 10 mg Vial IV PRN ×2 (08:40→10:20)
[2025-09-08] MEDS ORDERED: Morphine Sulfate 4 MG/1 ML Injection IV PRN (08:45)
[2025-09-08] MEDS ORDERED: FLU VACC TS2025(65UP)/MF59C/PF 45 MCG/0.5 ML SYRINGE IM SCH (08:55)
[2025-09-08] MEDS ORDERED: Isosorbide Mononitrate 60 MG TABCR PO SCH (09:00)
[2025-09-08] MEDS ORDERED: DULoxetine HCL 60 MG Capsule DR PO SCH (09:00)
[2025-09-08] MEDS ORDERED: Sugammadex Sodium 200 MG/2ML SDV (100 MG/ML) ONE (09:54)
[2025-09-08] MEDS ORDERED: FLU VACC TS2025-26(6MOS UP)/PF 45 MCG/0.5 ML SYRINGE IM ONE (10:20)
[2025-09-08] MEDS ORDERED: Insulin Regular 100 UNIT/ML 10ML Vial SC SCH (11:30)
[2025-09-08] MEDS ORDERED: ASPI81CH PO (11:45)
[2025-09-08] MEDS ORDERED: Ketorolac Tromethamine 15mg Vial IV SCH (12:00)
--- NOTE | 2025-09-08 16:00 | NUR ---
DC'D @8923 PT ARRIVED TO UNIT FROM SURGERY @8746. AXO4 - RESTING. NO PAIN PER PT. VSS - THIS REMAINED UNCHANGED. PT IN ARM SLING TO R ARM. WIGGLING FINGERS - SENSATION RESUMING BUT STILL GENERALOIZED NUMBNESS TO EXTREMITY. TOLERATED LUNCH. VOIDED WELL INTO URINAL. SHOULDER IMMOBILIZER IN PLACE AFTER RECEIVING ONE. WORKED WITH OT - DEEMED OK TO DC, PT APPRECIATED EDUCATION FROM THERAPIST. PT ANXIOUS TO GO HOME. TELFA/TEGADERM IN PLACE, CDI. DC INSTRUCTIONS PROVIDED TO PT. AQUACEL DRESSING PROVIDED FOR PRN CHANGE IF NEEDED AT HOME. COLK PACK GIVEN TO PT. PT DC'D OUT OF ROOM @2832. BELONGINGS WITH PT.
[2025-09-08] MEDS ORDERED: Insulin NPH 100 Unit / ML 10ML Vial SC SCH (18:00)
[2025-09-09] MEDS ORDERED: MetFORMIN HCl 500 mg PO SCH (08:00)
== END 2025-09-08 14:56 | disposition home or self-care (01) | DRG 483 ==
LOC: ORSCMMR 05:40 → ORD 07:30 → ORSCMMR 08:21 → SURS 08:21
PROVIDERS: ADMIT Orthopaedic Surgery
PROC: 0RRJ00Z Replacement of Right Shoulder Joint with Reverse Ball and Socket Synthetic Substitute, Open Approach (ICD-10-PCS; principal; 2025-09-08 07:30)
DX: M19.011 Primary osteoarthritis, right shoulder (principal)
CPT/HCPCS: 36415; 73030; 82947; 85610; 85730; 97110; 97165; 97535; A9270; C1713; C1776; J0166; J0690; J0735; J1815; J1885; J2405; J2704; J2765; J2795; J3010; J7120